=== PATIENT | female | born 1970 | race Caucasian/White ===

== ENCOUNTER → 2017-09-15 | Outpatient (CLI) | payer MEDICAID ==
--- NOTE | 2017-09-15 14:37 | MG ---
HISTORY: SCREENING Comparison: None FINDINGS: Bilateral CC and MLO projections of the right and left breast were obtained. Scattered fibroglandula r tissue is seen to be present. No significant architectural distortion, mass or clustered microcalc ifications can be observed to suggest malignancy. No skin thickening or nipple retraction is appreci ated. No pathological lymphadenopathy can be identified. Benign-appearing calcification is present in the left breast. IMPRESSION: NO RADIOGRAPHIC EVIDENCE OF MALIGNANCY. ACR CATEGORY: 2 - benign findings. FOLLOW-UP EXAM 1 YEAR. Diagnostic CAD was utilized and reviewed. * 0 (ZERO) - ASSESSMENT INCOMPLETE; ADDITIONAL IMAGING IS NEEDED. * / (ONE) - NEGATIVE. * 2/II (TWO) - BENIGN FINDINGS. * 3/III (THREE) - PROBABLY BENIGN FINDING; SHORT INTERVAL FOLLOW-UP SUGGESTED. * 4/IV (FOUR) - SUSPICIOUS ABNORMALITY; BIOPSY SHOULD BE CONSIDERED. * 5/V - HIGHLY SUSPICIOUS OF MALIGNANCY; BIOPSY SHOULD BE PERFORMED. A NEGATIVE X-RAY REPORT SHOULD NOT DELAY BIOPSY IF A DOMINANT OR CLINICALLY SUSPICIOUS MASS IS PRESENT; 4 TO 8 PERCENT OF CANCERS ARE NOT IDENTIFIED BY X-RAY. A NEGA TIVE REPORT MAY REINFORCE THE CLINICAL IMPRESSION. ADENOSIS AND DENSE BREASTS MAY OBSCURE AN UNDERLYING NEOPLASM. Reported By:
== END ==
LOC: RAD 12:57
PROVIDERS: ATTEND Nurse Practitioner Family
DX: Z12.31 Encounter for screening mammogram for malignant neoplasm of breast (principal)
CPT/HCPCS: 77066

== ENCOUNTER 2017-10-10 23:34 | Emergency (ER) | payer MEDICAID ==
[2017-10-10 23:51] VITALS: BMI 35.9
--- NOTE | 2017-10-11 01:03 | DR.GENAD ---
HPI - PCP Primary Care Physician: NFD - Complaint/Symptoms Chief Complaint:: PT STATES" I TOOK MY MEDS AND IT FEELS LIKE I AM NOT SWALLOWING IT I FEEL LIKE IT IS GETTING STUCK. Self Treatment fo Chief Complaint: NAPROXEN , NEUROTIN - Source History Provided: Patient - Mode of Arrival Mode of Arrival: Wheelchair - Timing Onset of Chief Complaint: 10/10/17 PMH - PMH Past Medical History: Yes Past Medical History: Seizures Past Surgical History: Yes Surgical History: , Hysterectomy, Ortho Surgery - Family History History of Family Medical Conditions: No - Social History Does any household member use tobacco: No Alcohol Use: None Do you use any recreational Drugs:: No Lives With: Family Lives Where: Home - infectious screening In the last 2 months have you had wt loss of >10#?: NO Have you had fever, night sweats or hemotysis?: No Have you traveled outside the country in the last 6 months?: No Isolation: Standard PE - Vital Signs Vitals: Temperature 97.3 F Pulse Rate 71 Respiratory Rate 18 Blood Pressure 175/94 O2 Sat by Pulse Oximetry 100 ROR - Labs Reviewed Result Diagrams: 10/11/17 01:24 10/11/17 01:24 Laboratory: WBC 5.8 X10^3/uL (3.6-10.0) 10/11/17 01:24 RBC 4.69 X10^6/uL (3.5-5.4) 10/11/17 01:24 Hgb 12.8 g/dL (12.0-16.0) 10/11/17 01:24 Hct 37.9 % (36.0-47.0) 10/11/17 01:24 MCV 81.0 fL (80.0-100.0) 10/11/17 01:24 MCH 27.2 pg (27.0-34.0) 10/11/17 01:24 MCHC 33.6 g/dL (33.0-35.0) 10/11/17 01:24 RDW 14.3 % (11.6-16.5) 10/11/17 01:24 Plt Count 226 X10^3/uL (150.0-450.0) 10/11/17 01:24 MPV 8.6 fL (7.4-11.0) 10/11/17 01:24 Neut % (Auto) 56.8 % (42.0-75.0) 10/11/17 01:24 Lymph % (Auto) 35.1 % (21.0-51.0) 10/11/17 01:24 [place] % (Auto) 5.3 % (0.0-13.0) 10/11/17 01:24 Eos % (Auto) 2.1 % (0.9-2.9) 10/11/17 01:24 Baso % (Auto) 0.7 % (0.2-1.0) 10/11/17 01:24 Neut # (Auto) 3.3 x10^3/uL (2.2-4.8) 10/11/17 01:24 Lymph # (Auto) 2.0 X10^3/uL (1.3-2.9) 10/11/17 01:24 [place] # (Auto) 0.3 x10^3/uL (0.3-0.8) 10/11/17 01:24 Eos # (Auto) 0.1 x10^3/uL (0.0-0.2) 10/11/17 01:24 Baso # (Auto) 0.0 X10^3/uL (0.0-0.1) 10/11/17 01:24 Absolute Nucleated RBC 0.1 /100WBC 10/11/17 01:24 Sodium 143 mmol/L (136-145) 10/11/17 01:24 Corrected Sodium 143 mmol/L (136-145) 10/11/17 01:24 Potassium 3.8 mmol/L (3.5-5.1) 10/11/17 01:24 Chloride 105 mmol/L (98-107) 10/11/17 01:24 Carbon Dioxide 29.5 mmol/L (21-32) 10/11/17 01:24 BUN 18 mg/dL (7-18) 10/11/17 01:24 Creatinine 0.75 mg/dL (0.55-1.02) 10/11/17 01:24 Est GFR (MDRD) Af Amer > 60 (>60) 10/11/17 01:24 Est GFR (MDRD) Non-Af > 60 (>60) 10/11/17 01:24 Glucose 118 mg/dL (65-99) H 10/11/17 01:24 Calcium 8.9 mg/dL (8.5-10.1) 10/11/17 01:24 Corrected Calcium TNP 10/11/17 01:24 Total Bilirubin 0.50 mg/dL (0.2-1.0) 10/11/17 01:24 AST 31 Units/L (15-37) 10/11/17 01:24 ALT 68 Units/L (12-78) 10/11/17 01:24 Alkaline Phosphatase 133 Units/L (46-116) H 10/11/17 01:24 Creatine Kinase 45 Units/L (26-192) 10/11/17 01:29 CK-MB (CK-2) < 1.0 ng/mL (0-4.0) 10/11/17 01:29 CK/CKMB % Calc 2.2 % (<4) 10/11/17 01:29 Troponin I < 0.02 ng/mL (0-1.5) 10/11/17 01:29 C-Reactive Protein < 0.50 mg/L (0-3.0) 10/11/17 01:24 Total Protein 8.1 g/dL (6.4-8.2) 10/11/17 01:24 Albumin 4.4 g/dL (3.4-5.0) 10/11/17 01:24 Globulin 3.7 g/dL (2.5-4.5) 10/11/17 01:24 Albumin/Globulin Ratio 1.2 Ratio (1.1-2.1) 10/11/17 01:24 H. pylori IgG Antibody Negative (NEGATIVE) 10/11/17 01:24 - XRAY XRAY Interpreted by: Radiologist (Chest XR: no acute problems; CT soft tissue neck w/Limited images through the upper chest show no acute abnormality. Review of bone windows shows no destructive osseous lesion. Visualized paranasal sinuses and mastoid air cells are clear. Visualized brain parenchyma and shows no acute abnormality. The epiglottis and larynx appear normal. Valleculae and piriform recesses appear normal. Pharyngeal soft tissues show no acute abnormality. The submandibular glands, parotid glands and thyroid gland appear grossly normla. No significant vascular calcifications noted. Prevertebral soft tissures anre normal. The visualized esophagus appears normal. Impressin: No acute abnormality.) - Diagnosis Discharge Problem: No esophageal obstruction - Discharge Plan Condition: Stable - Follow ups/Referrals Follow ups/Referrals: NFD,None [Primary Care Provider] - 3 days - Instructions
--- NOTE | 2017-10-11 01:17 | RAD ---
Chest AP portable Indication: Chest pain. Findings: There is no pneumothorax, effusion or consolidation. Heart size is normal. Impression: No acute chest process. Reported By:
[2017-10-11 01:45] LABS: BASOPHILS % (AUTO) 0.7 % (0.2-1.0); EOSINOPHILS # (AUTO) 0.1 x10^3/uL (0.0-0.2); EOSINOPHILS % (AUTO) 2.1 % (0.9-2.9); HEMATOCRIT 37.9 % (36.0-47.0); HEMOGLOBIN 12.8 g/dL (12.0-16.0); LYMPHOCYTES % (AUTO) 35.1 % (21.0-51.0); MEAN CORPUSCULAR HEMOGLOBIN 27.2 pg (27.0-34.0); MEAN CORPUSCULAR HGB CONC 33.6 g/dL (33.0-35.0); MEAN PLATELET VOLUME 8.6 fL (7.4-11.0); MONOCYTES # (AUTO) 0.3 x10^3/uL (0.3-0.8); MONOCYTES % (AUTO) 5.3 % (0.0-13.0); NEUTROPHILS # (AUTO) 3.3 x10^3/uL (2.2-4.8); NEUTROPHILS % (AUTO) 56.8 % (42.0-75.0); PLATELET COUNT 226 X10^3/uL (150.0-450.0); RED BLOOD COUNT 4.69 X10^6/uL (3.5-5.4); RED CELL DISTRIBUTION WIDTH 14.3 % (11.6-16.5); WHITE BLOOD COUNT 5.8 X10^3/uL (3.6-10.0)
[2017-10-11 01:53] LABS: ALANINE AMINOTRANSFERASE 68 Units/L (12-78); ALBUMIN 4.4 g/dL (3.4-5.0); ALKALINE PHOSPHATASE 133 Units/L (46-116); ASPARTATE AMINO TRANSFERASE 31 Units/L (15-37); BLOOD UREA NITROGEN 18 mg/dL (7-18); C-REACTIVE PROTEIN < 0.50 mg/L (0-3.0); CALCIUM 8.9 mg/dL (8.5-10.1); CARBON DIOXIDE 29.5 mmol/L (21-32); CHLORIDE 105 mmol/L (98-107); COR NA(FOR HYPERGLY) 143 mmol/L (136-145); CREATININE 0.75 mg/dL (0.55-1.02); SODIUM 143 mmol/L (136-145); TOTAL PROTEIN 8.1 g/dL (6.4-8.2); eGFR BLACK RACES > 60 (>60); eGFR NON BLACK RACES > 60 (>60)
--- NOTE | 2017-10-11 02:10 | CT ---
CT soft tissue neck without contrast Indication: Choking Technique: Helical images through the soft tissues of the neck without contrast. Coronal and sagittal reformats provided. Findings: Limited images through the upper chest show no acute abnormality. Review of bone windows sh ows no destructive osseous lesion. Visualized paranasal sinuses and mastoid air cells are clear. Visu alized brain parenchyma and shows no acute abnormality. The epiglottis and larynx appear normal. Vall eculae and piriform recesses appear normal. Pharyngeal soft tissues show no acute abnormality. The coughlin bmandibular glands, parotid glands and thyroid gland appear grossly normal. No significant vascular c alcifications noted. Prevertebral soft tissues are normal. The visualized esophagus appears normal Impression: No acute abnormality Reported By:
[2017-10-11 02:32] LABS: CKMB % 2.2 % (<4); CREATINE KINASE 45 Units/L (26-192); CREATINE KINASE MB < 1.0 ng/mL (0-4.0); TROPONIN I < 0.02 ng/mL (0-1.5)
[2017-10-11 03:53] VITALS: BP 148/88
== END 2017-10-11 03:53 | disposition home or self-care (01) ==
LOC: ER 23:43
DX: R13.10 Dysphagia, unspecified (principal)
CPT/HCPCS: 36415; 70490; 71045; 80053; 82550; 82553; 84484; 85025; 86140; 86677; 93005; 93010; 99282; 99283